=== PATIENT | female | born 1970 | race Caucasian/White ===

== ENCOUNTER 2023-09-12 13:45 | Outpatient (AMB) | payer OTHER, SELFPAY ==
--- NOTE | 2023-09-12 13:58 | AM.OFFWIN_ITS ---
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 PFSH Social History Patient Tobacco Use Status: Former Tobacco user Review of Systems Const All systems reviewed & are unremarkable except as noted in HPI and below Reports no additional complaints Eyes Reports no additional complaints ENT Reports no additional complaints Card Reports no additional complaints Resp Reports no additional complaints GI Reports no additional complaints Reports no additional complaints Musc Reports no additional complaints Skin/Breast Reports system reviewed and no additional complaints, except as documented Neuro Reports no additional complaints Psych Reports no additional complaints Endo Reports no additional complaints Saad/Lymph Reports no additional complaints Aller/Immun Reports no additional complaints Physical Exam Vital Signs: Last Vital Signs Temp 98.0 F 09/12/23 14:01 Pulse 97 09/12/23 14:01 BP 118/70 09/12/23 14:01 Pulse Ox 98 09/12/23 14:01 Oxygen Delivery Method Room Air 09/12/23 14:01 BMI result Body Mass Index 32.4 Const Other: Vital signs reviewed. Constitutional: Non-toxic appearing. No acute distress. Well-developed and well-nourished. HEENT: Normocephalic and atraumatic. Skin: Warm and dry. No rashes or lesions noted. Neck: Full and painless range of motion. No cervical lymphadenopathy. Cardio: Regular rate. No lower extremity edema. No JVD. Pulmonary: No respiratory distress. No accessory muscle usage. Gastrointestinal: Soft, nontender, and nondistended in all 4 quadrants. Genitourinary: No CVA tenderness. Musculoskeletal: Normal range of motion in joints throughout the body. No def ormity or other signs of injury. Neuro: Alert and oriented x4. Cranial nerves 2-12 grossly intact. No focal deficits appreciated. Psych: Normal mood and affect. 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 Patient was made aware that we do not have the PPD testing here and she will require blood work for tuberculosis testing but this can take up to 1 week. Patient verbalized her understanding. T spot TB was ordered and obtained at the lab. Patient will be called with the results. Additionally, patient was requesting confirmation of her last physical examination. However, she is not a patient this office so I explained to her that I cannot confirm the date of her last physical examination as I do not have any way of verifying her last physical examination. Patient verbalized her understanding and she was very appreciative of everyone's help at the walk-in. Orders: Orders T Spot TB Today Z11.1 - Encounter for screening for respiratory tuberculosis Coding Level of Care Code New Pt Level 3 (51406) Diagnoses Encounter for screening for respiratory tuberculosis Z11.1
[2023-09-12 14:01] VITALS: BP 118/70; PULSE 97; TEMP 36.7; O2SAT 98; BMI 32.4
== END 2023-09-12 14:53 | disposition home or self-care (01) ==
PROVIDERS: Visit Provider Physician Assistant Medical
DX: Z11.1 Encounter for screening for respiratory tuberculosis (principal)
CPT/HCPCS: 99203

== ENCOUNTER 2023-09-17 11:17 | Outpatient (REF) | payer OTHER, SELFPAY ==
[2023-09-19 12:27] LABS: TS Negative Control Passed; TS Panel A 2; TS Panel B 0; TS Positive Control Passed; TSpotTB Negative (Negative)
== END 2023-09-17 11:18 | disposition home or self-care (01) ==
LOC: HO.HMGCLDS 11:17
PROVIDERS: Visit Provider Physician Assistant Medical
DX: Z11.1 Encounter for screening for respiratory tuberculosis (principal)
CPT/HCPCS: 36415; 86481

== ENCOUNTER 2024-01-14 09:44 | Outpatient (AMB) | payer OTHER, SELFPAY ==
[2024-01-14 09:50] VITALS: BP 130/76; PULSE 75; TEMP 36.6; O2SAT 96; BMI 31.9
--- NOTE | 2024-01-14 09:50 | AM.OFFWIN_ITS ---
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 She works as a school truck driver salesperson. Denies any respiratory diseases. Pt also reports mouth sores and blisters on upper/lower Lips. ?? worried it could be Thrush. [facility] Medical History (Updated 01/14/24 @ 10:11 by Jonelle Quach NP) Wheezing on auscultation Social History Patient Tobacco Use Status: Former Tobacco user Physical Exam Vital Signs: Last Vital Signs Temp 97.9 F 01/14/24 09:50 Pulse 75 01/14/24 09:50 BP 130/76 01/14/24 09:50 Pulse Ox 96 01/14/24 09:50 Oxygen Delivery Method Room Air 01/14/24 09:50 BMI result Body Mass Index 31.9 Const General: no acute distress; No comfortable Orientation/consciousness: patient oriented x3 HEENT Head: Yes normocephalic Ears: external ears normal and TM's normal bilaterally General nose exam: Abnormal mucous membranes and turbinates present boggy and erythematous and Nasal discharge present Face and sinus: Yes sinuses nontender Mouth: moist mucous membranes and lip abnormal (Rash blisters, erythematous upper/lower lips. ) Throat: Yes posterior oropharynx normal Resp Effort & Inspection: normal respiratory effort and able to speak in complete sentences Auscultation: no crackles, no rales, rhonchi upper bilaterally and wheezes throughout Cardio Rate: regular rate Rhythm: regular rhythm Neuro General: patient oriented x3 Office Procedures Nebulizer Treatment Nebulizer Treatment 23170-[id number]/MDI RX initial, or Nebulizer Subsequent Treatment Office Meds ipratropium 0.5 mg-albuterol 3 mg (2.5 mg base)/3 mL nebulization soln Performing Provider: Jonelle Quach NP Performing Location: [facility] Administered by: Jonelle Quach NP on 01/14/24 10:13 Dose Route Admin Location Dispensed Lot Number Expiration Date NDC [employer] Cutter 3 mL inhalation 3 mL [id number] 07/13/24 3776-3875-91 [facility] Assessment & Plan Assessment & Plan (1) Upper respiratory infection: Code(s): J06.9 - Acute upper respiratory infection, unspecified Qualifiers: URI type: unspecified URI Qualified Code(s): J06.9 - Acute upper respiratory infection, unspecified Plan: - Rest and hydrate well - SARs -Abx - OTC cough/cold remedies. - RTC if symptoms worse. (2) Wheezing on auscultation: Code(s): R06.2 - Wheezing Plan: - Rest and hydrate well - SARs -Abx - OTC cough/cold remedies. - RTC if symptoms worse. Plan - Rest and hydrate well - SARs -Abx - OTC cough/cold remedies. - RTC if symptoms worse. Orders: Orders SARS-CoV2/FLU/RSV Today R06.2 - Wheezing, R09.89 - Other specified symptoms and signs involving the circulatory and respiratory systems AMB Nebulizer Treatment Today R06.2 - Wheezing Medications: New azithromycin 500 mg PO DAILY 3 days 3 tabs 0RF wheezing J06.9 - Acute upper respiratory infection, unspecified, R06.2 - Wheezing prednisone 50 mg PO DAILY 5 days 5 tabs 0RF wheezing J06.9 - Acute upper respiratory infection, unspecified, R06.2 - Wheezing benzonatate 100 mg PO TID 30 caps 0RF cough J06.9 - Acute upper respiratory infection, unspecified albuterol sulfate 90 mcg/actuation 2 puffs inhalation Q4-6H PRN 6.7 grams 0RF shortness of breath or wheezing J06.9 - Acute upper respiratory infection, unspecified, R06.2 - Wheezing Coding Level of Care Code Est Pt Level 4 (67270) Diagnoses Upper respiratory tract infection, unspecified type J06.9 URI type: unspecified URI Wheezing on auscultation R06.2 CPT Codes Nebulizer Treatment - Nebulizer Treatment, initial or subsequent: 96716- Nebulizer/MDI RX initial, or Nebulizer Subsequent Treatment ([id number]) Time Spent (min) 20
== END 2024-01-14 11:50 | disposition home or self-care (01) ==
PROVIDERS: Visit Provider Nurse Practitioner Family
DX: J06.9 Acute upper respiratory infection, unspecified (principal); R06.2 Wheezing
CPT/HCPCS: 94640; 99214; J7620

== ENCOUNTER 2024-01-14 10:18 | Outpatient (REF) | payer OTHER, SELFPAY ==
[2024-01-14 14:35] LABS: Influenza A PCR NEGATIVE (Negative); Influenza B PCR NEGATIVE (Negative); Resp Syncy Virus RNA Qual PCR NEGATIVE (Negative); SARS COV2 PCR INHOUSE NEGATIVE (Negative)
== END 2024-01-14 10:19 | disposition home or self-care (01) ==
LOC: HO.LAB 10:18
PROVIDERS: Visit Provider Nurse Practitioner Family
DX: Z11.52 Encounter for screening for COVID-19 (principal); R06.2 Wheezing; R09.89 Other specified symptoms and signs involving the circulatory and respiratory systems
CPT/HCPCS: 0241U

== ENCOUNTER 2024-01-16 11:08 | Outpatient (AMB) | payer OTHER, SELFPAY ==
[2024-01-16 11:12] VITALS: BP 120/80; PULSE 88; TEMP 36.6; O2SAT 98; BMI 31.8
--- NOTE | 2024-01-16 11:12 | MHC.OFFWIV ---
Intake Vital Signs 01/16/24 11:12 Height 5 ft 4 in Weight 185 lb BMI 31.8 BP 120/80 Blood Pressure Location Lt brachial Position Sitting Pulse 88 Pulse Source Pulse Oximeter Temp 97.8 F Temp Source Temporal Artery Scan Pulse Oximetry (%) 98 Oxygen Delivery Method Room Air Intake Visit Reasons: EP Was told to come back to have her lungs checked Intake Note: pt is here today for lungs check up Patient Tobacco Use Status: Former Tobacco user Allergies No Known Allergies Allergy (Verified 01/16/24 11:27) Medication List - Last Reconciled 01/16/24 by Rajesh Moseley MD albuterol sulfate 90 mcg/actuation 2 puffs inhalation Q4-6H PRN azithromycin 500 mg PO DAILY 3 days benzonatate 100 mg PO TID buprenorphine-naloxone 8-2 mg (Suboxone) 10 mg sublingual BID celecoxib 200 mg PO DAILY clonazepam 1 mg PO BID PRN conj estrog-medroxyprogest naresh 0.625-2.5 mg (Prempro) 1 tab PO DAILY lamotrigine 25 mg PO DAILY multivitamin 1 tab PO DAILY prednisone 50 mg PO DAILY 5 days Do you need a note to return to daycare/school/sports/work: No HPI EP Was told to come back to have her lungs checked HPI Details Recently seen for a URI. Was given 3 days of azithromycin. Pt presents for a follow up. Sx are improving but not resolved. Continues to have cough with yellow sputum. No fever or chills. [facility] Medical History (Updated 01/14/24 @ 10:11 by Jonelle Quach NP) Wheezing on auscultation Social History Patient Tobacco Use Status: Former Tobacco user Physical Exam Vital Signs: Last Vital Signs Temp 97.8 F 01/16/24 11:12 Pulse 88 01/16/24 11:12 BP 120/80 01/16/24 11:12 Pulse Ox 98 01/16/24 11:12 Oxygen Delivery Method Room Air 01/16/24 11:12 BMI result Body Mass Index 31.8 Const General: cooperative and healthy appearing Nutritional Appearance: well nourished Orientation/consciousness: patient oriented x3 Limitations: no limitations HEENT Head: Yes normal to inspection Eyes General: appearance normal, both eyes and all related structures Neck Neck: Yes normal visual inspection Chest Chest palpation & inspection: normal palpation of entire chest wall Resp Effort & Inspection: normal respiratory effort Neuro General: patient oriented x3 Assessment & Plan Assessment & Plan (1) Upper respiratory infection: Code(s): J06.9 - Acute upper respiratory infection, unspecified Plan: Additional 3 more days of antibiotics called in. If symptoms do not improve to follow-up here. Medications: Refilled azithromycin 500 mg PO DAILY 3 tabs 0RF wheezing 3 days J06.9 - Acute upper respiratory infection, unspecified, R06.2 - Wheezing Coding Level of Care Code Est Pt Level 3 (93641) Diagnoses Upper respiratory infection J06.9
== END 2024-01-16 11:37 | disposition home or self-care (01) ==
PROVIDERS: Visit Provider Internal Medicine
DX: J06.9 Acute upper respiratory infection, unspecified (principal)
CPT/HCPCS: 99213